=== PATIENT | female | born 1960 | race Caucasian/White ===

== ENCOUNTER 2018-11-17 10:26 | Emergency (ER) | payer OTHER ==
[~2018-11-17] VITALS: Ht 157.5 cm; Wt 56.7 kg
[2018-11-17 10:37] VITALS: BP 153/57
--- NOTE | 2018-11-17 10:40 | NUR ---
urine cup handed to pt for sample
--- NOTE | 2018-11-17 10:46 | NUR ---
58/F BIB c/o lower back pain x 3 days---denies injury, denies dysuria ambulatory with steady gait. hx---Sjogren's syndrome rx----motrin DENIES N/V/D; SKIN IS PINK/WARM/DRY.PATIENT STATES PAIN OF 9/10 AT THIS TIME. PATIENT POSITIONED FOR COMFORT; HOB ELEVATED; BEDRAILS UP X2; BED DOWN. ER MD MADE AWARE OF PT STATUS.
[2018-11-17] MEDS ORDERED: fentaNYL 0.05 MG/ML VIAL IM ONE (11:35)
[2018-11-17] MEDS ORDERED: methylPREDNISolone SS 125 MG/2 ML VIAL IM ONE (11:35)
[2018-11-17 12:13] VITALS: BP 131/61
--- NOTE | 2018-11-17 12:13 | NUR ---
Patient discharged with v/s stable. Written and verbal after care instructions given and explained. Patient alert, oriented and verbalized understanding of instructions. Ambulatory with steady gait. All questions addressed prior to discharge. ID band removed. Patient advised to follow up with PMD. Rx ofROBAXIN, MOTRIN & TRAMADOL given. Patient educated on indication of medication including possible reaction and side effects. Opportunity to ask questions provided and answered.
== END 2018-11-17 12:13 | disposition home or self-care (01) ==
LOC: MED 10:26
DX: S39.012A Strain of muscle, fascia and tendon of lower back, initial encounter (principal); X58.XXXA Exposure to other specified factors, initial encounter; Y93.89 Activity, other specified; Y92.89 Other specified places as the place of occurrence of the external cause; Y99.8 Other external cause status
CPT/HCPCS: 72100; 81002; 96372; 99283; J2930; J3010

== ENCOUNTER 2020-09-21 06:05 | Day surgery (SDC) | payer OTHER ==
[2020-09-10 09:50] LABS: ALBUMIN 3.9 g/dL (3.4-5.0); ANION GAP 10.2 (8-16); CARBON DIOXIDE 29.3 mmol/L (21-32); CREATININE 1.3 mg/dL (0.6-1.3); POTASSIUM 3.5 mmol/L (3.5-5.1); TOTAL BILIRUBIN 0.4 mg/dL (0.0-1.0)
[2020-09-10 09:59] LABS: BASOPHILS # (AUTO) 0.1 K/uL (0.00-0.22); BASOPHILS % (AUTO) 0.8 % (0.0-2.0); EOSINOPHILS # (AUTO) 0.2 K/uL (0-0.4); EOSINOPHILS % (AUTO) 2.8 % (0.0-4.0); HEMATOCRIT 36.1 % (36-48); HEMOGLOBIN 12.1 g/dL (12.0-16.0); LYMPHOCYTES # (AUTO) 3.5 K/uL (2.5-16.5); LYMPHOCYTES % (AUTO) 45.5 % (20.5-51.1); MEAN CORPUSCULAR HEMOGLOBIN 33 pg (27-31); MEAN CORPUSCULAR HGB CONC 33 g/dL (33-37); MEAN CORPUSCULAR VOLUME 98.9 fL (80-94); MONOCYTES # (AUTO) 0.6 K/uL (0.8-1.0); MONOCYTES % (AUTO) 7.2 % (1.7-9.3); NEUTROPHILS # (AUTO) 3.4 K/uL (1.8-7.7); NEUTROPHILS % (AUTO) 43.7 % (42.2-75.2); PLATELET COUNT (AUTO) 252 K/uL (140-450); RED BLOOD CELL COUNT(AUTO) 3.65 MIL/uL (4.20-5.40); RED CELL DISTRIBUTION WIDTH 13.4 % (11.6-13.7); WHITE BLOOD COUNT (AUTO) 7.8 K/uL (4.8-10.8)
[~2020-09-21] VITALS: Ht 160 cm; Wt 59.0 kg
[2020-09-21] MEDS ORDERED: PROPOFOL 200 MG/20 ML VIAL IV ONE (07:30)
[2020-09-21] MEDS ORDERED: SUGAMMADEX SODIUM 200 MG/2 ML VIAL IV ONE (07:30)
[2020-09-21] MEDS ORDERED: SEVOFLURANE 250 ML BTL INH ONE (07:30)
[2020-09-21] MEDS ORDERED: DEXAMETHASONE 4 MG/ML VIAL ONE (07:30)
[2020-09-21] MEDS ORDERED: HYDROCORTISONE NA SUCC 100 MG/2 ML VIAL ONE (07:38)
[2020-09-21] MEDS ORDERED: LACTATED RINGERS 1,000 ML IV SCH (08:30)
[2020-09-21] MEDS ORDERED: ONDANSETRON 4 MG/2 ML VIAL IVP PRN (08:30)
[2020-09-21] MEDS ORDERED: diphenhydrAMINE 50 MG/ML VIAL IVP PRN (08:30)
== END 2020-09-21 10:30 | disposition home or self-care (01) ==
LOC: MDS 06:05 → MFCC 06:25 → MDS 10:30
PROVIDERS: ATTEND Urology
DX: N20.1 Calculus of ureter (principal); I10 Essential (primary) hypertension; M35.00 Sjogren syndrome, unspecified; M19.90 Unspecified osteoarthritis, unspecified site; Z20.828 Contact with and (suspected) exposure to other viral communicable diseases; Z79.899 Other long term (current) drug therapy
CPT/HCPCS: 36415; 50590; 71045; 80053; 85025; J1100; J1720; J2704; U0003

== ENCOUNTER 2022-07-26 01:38 | Emergency (ER) | payer OTHER ==
[~2022-07-26] VITALS: Ht 157.5 cm; Wt 51.7 kg
--- NOTE | 2022-07-26 01:51 | NUR ---
PT TO BED 04.
--- NOTE | 2022-07-26 02:15 | NUR ---
Dr. Hall examining patient.
[2022-07-26] MEDS ORDERED: MORPHINE SULFATE 4 MG/ML SYR IVP ONE (02:20)
[2022-07-26] MEDS ORDERED: ONDANSETRON 4 MG/2 ML VIAL IVP ONE (02:20)
[2022-07-26 02:27] LABS: BASOPHILS # (AUTO) 0.1 K/uL (0.00-0.22); BASOPHILS % (AUTO) 0.9 % (0.0-2.0); EOSINOPHILS # (AUTO) 0.1 K/uL (0-0.4); EOSINOPHILS % (AUTO) 1.3 % (0.0-4.0); HEMATOCRIT 34.9 % (36-48); HEMOGLOBIN 11.8 g/dL (12.0-16.0); LYMPHOCYTES # (AUTO) 2.8 K/uL (2.5-16.5); LYMPHOCYTES % (AUTO) 38.4 % (20.5-51.1); MEAN CORPUSCULAR HEMOGLOBIN 34 pg (27-31); MEAN CORPUSCULAR HGB CONC 34 g/dL (33-37); MEAN CORPUSCULAR VOLUME 99.2 fL (80-94); MONOCYTES # (AUTO) 0.5 K/uL (0.8-1.0); MONOCYTES % (AUTO) 6.7 % (1.7-9.3); NEUTROPHILS # (AUTO) 3.8 K/uL (1.8-7.7); NEUTROPHILS % (AUTO) 52.7 % (42.2-75.2); PLATELET COUNT (AUTO) 193 K/uL (140-450); RED BLOOD CELL COUNT(AUTO) 3.52 MIL/uL (4.20-5.40); RED CELL DISTRIBUTION WIDTH 12.7 % (11.6-13.7); WHITE BLOOD COUNT (AUTO) 7.2 K/uL (4.8-10.8)
--- NOTE | 2022-07-26 02:27 | NUR ---
20G IV CATH PLACED L AC LABS COLLECTED AND SENT TO LAB
--- NOTE | 2022-07-26 02:30 | NUR ---
PT TO XRAY VIA W/C
--- NOTE | 2022-07-26 02:38 | NUR ---
PT BACK FROM XRAY AND BACK ON MONITOR. UPDATED PT ON POC WITH FULL RETURNED VERBAL UNDERSTANDING. VSS WILL CONTINUE TO MONITOR.
[2022-07-26 02:45] LABS: ALBUMIN 3.6 g/dL (3.4-5.0); CREATININE 1.7 mg/dL (0.6-1.3); TOTAL BILIRUBIN 0.4 mg/dL (0.0-1.0)
--- NOTE | 2022-07-26 04:08 | NUR ---
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 RESP EVEN AND UNLABORED. PT IS 0/10 PAIN . PENDING RESULTS OF CT AND LABS
--- NOTE | 2022-07-26 05:57 | NUR ---
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 RESP EVEN AND UNLABORED. PT IS 0/10 PAIN . PENDING RESULTS OF CT AND LABS
[2022-07-26] MEDS ORDERED: ACET-8386 PO (07:07)
[2022-07-26] MEDS ORDERED: OMEP40EC24 PO (07:07)
[2022-07-26] MEDS ORDERED: ONDA-188 PO (07:07)
[2022-07-26 07:10] VITALS: BP 152/55
--- NOTE | 2022-07-26 07:10 | NUR ---
Patient discharged with v/s stable. Written and verbal after care instructions given and explained. Patient alert, oriented and verbalized understanding of instructions. Ambulatory with steady gait. All questions addressed prior to discharge. ID band removed. Patient advised to follow up with PMD. Rx of NORCO, PRILOSEC, AND ZOFRAN given. Patient educated on indication of medication including possible reaction and side effects. Opportunity to ask questions provided and answered.
== END 2022-07-26 07:10 | disposition home or self-care (01) ==
LOC: MED 01:38
DX: R14.0 Abdominal distension (gaseous) (principal); N18.30 Chronic kidney disease, stage 3 unspecified
CPT/HCPCS: 36415; 74176; 80053; 81002; 83690; 85025; 96374; 96375; 99285; J2270; J2405

== ENCOUNTER 2023-07-13 13:20 | Outpatient (CLI) | payer OTHER ==
[~2023-07-13 13:20] MED LIST: ACET-8905 PO; OMEP40EC24 PO; ONDA-188 PO
== END 2023-07-13 19:29 | disposition home or self-care (01) ==
LOC: MRD 13:20
PROVIDERS: ATTEND Internal Medicine
DX: M12.811 Other specific arthropathies, not elsewhere classified, right shoulder (principal); M12.812 Other specific arthropathies, not elsewhere classified, left shoulder
CPT/HCPCS: 73030

== ENCOUNTER 2023-09-14 09:37 | Outpatient (CLI) | payer OTHER ==
[2023-09-14 11:31] LABS: APPEARANCE,URINE CLEAR (CLEAR); BILIRUBIN,URINE NEGATIVE (NEGATIVE); BLOOD, URINE NEGATIVE (NEGATIVE); COLOR,URINE YELLOW (YELLOW); LEUKOCYTE ESTERASE ,URINE NEGATIVE (NEGATIVE); NITRITE, URINE NEGATIVE (NEGATIVE); PROTEIN,URINE NEGATIVE (NEGATIVE); UGLUCOSE NEGATIVE (NEGATIVE); UROBILINOGEN,URINE 0.2 EU/dL (0.2 - 1)
[2023-09-14 11:33] LABS: BASOPHILS % (AUTO) 0.5 % (0.0-2.0); EOSINOPHILS # (AUTO) 0.1 K/uL (0-0.4); EOSINOPHILS % (AUTO) 0.6 % (0.0-4.0); HEMATOCRIT 35.7 % (36-48); HEMOGLOBIN 12.1 g/dL (12.0-16.0); LYMPHOCYTES # (AUTO) 2.6 K/uL (2.5-16.5); LYMPHOCYTES % (AUTO) 33.5 % (20.5-51.1); MEAN CORPUSCULAR HEMOGLOBIN 34 pg (27-31); MEAN CORPUSCULAR HGB CONC 34 g/dL (33-37); MEAN CORPUSCULAR VOLUME 98.7 fL (80-94); MONOCYTES # (AUTO) 0.6 K/uL (0.8-1.0); NEUTROPHILS # (AUTO) 4.4 K/uL (1.8-7.7); NEUTROPHILS % (AUTO) 57.4 % (42.2-75.2); PLATELET COUNT (AUTO) 238 K/uL (140-450); RED BLOOD CELL COUNT(AUTO) 3.62 MIL/uL (4.20-5.40); RED CELL DISTRIBUTION WIDTH 13.3 % (11.6-13.7); WHITE BLOOD COUNT (AUTO) 7.8 K/uL (4.8-10.8)
[2023-09-14 11:51] LABS: ALBUMIN 3.6 g/dL (3.4-5.0); ANION GAP 10.7 (8-16); BILIRUBIN,DIRECT 0.1 mg/dL (0.0-0.3); CALCIUM 8.9 mg/dL (8.5-10.1); CARBON DIOXIDE 29.6 mmol/L (21-32); CREATININE 1.1 mg/dL (0.6-1.3); POTASSIUM 3.3 mmol/L (3.5-5.1); TOTAL BILIRUBIN 0.6 mg/dL (0.0-1.0); TOTAL PROTEIN, SERUM 8.1 g/dL (6.4-8.2)
[2023-09-15 09:07] LABS: COMPLEMENT C3 133 mg/dL (82-167); COMPLEMENT C4 26 mg/dL (12-38)
== END 2023-09-14 21:20 | disposition home or self-care (01) ==
LOC: MLB 09:37
PROVIDERS: ATTEND Internal Medicine
DX: Z00.00 Encounter for general adult medical examination without abnormal findings (principal); M35.01 Sjogren syndrome with keratoconjunctivitis; Z79.899 Other long term (current) drug therapy
CPT/HCPCS: 36415; 80053; 80076; 81003; 83036; 85025; 85651; 86140; 86160